=== PATIENT | male | born 1970 | race Caucasian/White ===

== ENCOUNTER 2016-12-15 13:26 | Emergency (ER) | payer OTHER ==
[2016-12-15] MEDS ORDERED: ASPIRIN 325 MG TAB PO ONE (13:36)
[2016-12-15] MEDS ORDERED: ASPIRIN 81 MG CHEWABLE TAB ONE (13:38)
--- NOTE | 2016-12-15 13:40 | CPEKG ---
Heart Rate: 66 RR Interval: 909 P-R Interval: 164 QRSD Interval: 98 QT Interval: 424 QTC Interval: 445 P [place]: 63 QRS [place]: 79 T Wave [place]: 64 EKG Severity - NORMAL ECG - EKG Impression: SINUS RHYTHM Electronically Signed By: Candido Gatica 15-Dec-2016 17:37:35
[2016-12-15 13:45] LABS: % IMMATURE GRANULYOCYTES 0.3 % (0.0-1.1); ABSOLUTE IMMATURE GRANULOCYTES 0.02 10^3/uL (0.00-0.10); ADD DIFF? NO; ADD MORPH? NO; ADD SCAN? NO; ATYPICAL LYMPHOCYTE FLAG 0 (0-99); FRAGMENT RBC FLAG 0 (0-99); HEMATOCRIT 47.6 % (40.0-51.0); HEMOGLOBIN 16.8 g/dL (13.7-17.5); LEFT SHIFT FLG 0 (0-99); LIPEMIA HEMOLYSIS FLAG 90 (0-99); MEAN CELL HEMOGLOBIN 30.7 pg (27.9-34.1); MEAN CELL HEMOGLOBIN CONCENTR. 35.3 g/dL (32.4-36.7); MEAN CELL VOLUME 86.9 fL (81.5-99.8); MEAN PLATELET VOLUME 10.4 fL (8.7-11.7); PLATELET CLUMPS FLAG 0 (0-99); PLATELET COUNT 202 10^3/uL (150-400); RED BLOOD CELL COUNT 5.48 10^6/uL (4.40-6.38); RED CELL DISTRIBUTION WIDTH 12.2 % (11.5-15.2)
[2016-12-15 13:58] LABS: ANION GAP 12 mEq/L (8-16); CALCIUM 9.1 mg/dL (8.5-10.4); CARBON DIOXIDE 22 mEq/l (22-31); CHLORIDE 106 mEq/L (97-110); CREATININE 1.2 mg/dL (0.7-1.3); GLOMERULAR FILTRATION RATE > 60; GLUCOSE 101 mg/dL (70-100); SODIUM 140 mEq/L (134-144)
--- NOTE | 2016-12-15 13:59 | EDPHY ---
H & P Stated Complaint: chest tightness since sunday - Personal History Current Tetanus/Diphtheria Vaccine: Unsure - Medical/Surgical History Hx Asthma: No Hx Chronic Respiratory Disease: No Hx Diabetes: No Hx Cardiac Disease: No Hx Renal Disease: No Hx Cirrhosis: No Hx Alcoholism: No Hx HIV/AIDS: No Hx Splenectomy or Spleen Trauma: No Other PMH: denies - Family History Significant Family History: No pertinent family hx - Social History Smoking Status: Never smoked Time Seen by Provider: 12/15/16 13:37 HPI/ROS: Chief complaint: Chest tightness History of present illness: This is an otherwise healthy 46-year-old male who presents to the emergency department for evaluation of chest tightness. Patient reports the onset of symptoms approximately 3 days ago. He states symptoms have been intermittent in nature. When pain occurs it lasts for 30 minutes to an hour. It does not radiate. He denies any precipitating factors including exertion. He denies alleviating or aggravating factors. He has had on occasion some epigastric discomfort. He denies other associated signs or symptoms including no fevers, no cold symptoms, no cough for shortness of breath , no pain or swelling in the legs. He has never had similar. Review of systems: A 10 point review of systems was obtained and other than described above was negative (Pietro Davis) - Physical Exam Exam: General Appearance: Alert, nontoxic. Eyes: Pupils equal and round no pallor or injection. ENT, Mouth: Mucous membranes moist. Respiratory: There are no retractions, lungs are clear to auscultation. Cardiovascular: Regular rate and rhythm. Gastrointestinal: Abdomen is soft and nontender, no masses, bowel sounds normal. Neurological: Alert and oriented x4. Strength and sensation intact and symmetrical. Skin: Warm and dry, no rashes. Musculoskeletal: Neck is supple nontender. Extremities are symmetrical, full range of motion. Psychiatric: Patient is oriented X 3, there is no agitation. (Pietro Davis) Constitutional: Initial Vital Signs Temperature (C) 36.5 C 12/15/16 13:29 Heart Rate 72 12/15/16 13:29 Respiratory Rate 18 12/15/16 13:29 Blood Pressure 129/68 H 12/15/16 13:29 O2 Sat (%) 96 12/15/16 13:29 O2 Delivery Mode Room Air Allergies/Adverse Reactions: No Known Allergies Allergy (Unverified 12/15/16 13:29) Home Medications: Medication Instructions Recorded NK [No Known Home Meds] 12/15/16 Medical Decision Making - Diagnostics EKG Interpretation: EKG interpreted by me shows normal sinus rhythm with normal intervals and axis. QRS is normal ST-T segments are normal. Rate is 66. This appears to be a normal EKG (Candido Gatica) ED Course/Re-evaluation: Patient seen in conjunction with my secondary supervising physician Dr. Candido Gatica. Patient presents to the emergency department for chest tightness and occasional epigastric pain. On presentation he is nontoxic. Afebrile and vital signs are stable. Physical exam unremarkable. Blood studies and EKG unremarkable. Chest x-ray had been ordered, but patient declined. He would like to be discharged from the hospital to follow up on an outpatient basis. Again I have offered a chest x-ray but he has declined. Further I have offered admission to the hospital for further evaluation of his chest pain again he declines. He is competent to make these decisions. At discharge he is symptom- free. He is referred to Cardiology for further evaluation and care. Strict return precautions are given. Patient voiced understanding and agreement with plan. (Pietro Davis) I also saw the patient in the emergency department. I reviewed the history of several days of anterior chest tightness. He denies precipitating factors including exertion, breathing, movement. Not short of breath. He has not had similar symptoms before. He has no significant risk factors including family history. My exam of this patient is normal. His vital signs are normal Laboratory evaluation is normal. EKG is normal. Patient is offered admission by me. On re-evaluation he stable. The patient declines admission and is comfortable with being treated as an outpatient. The patient and I discussed criteria for return as well as importance of follow-up and further evaluation. He expresses understanding and agreement (Candido Gatica) Differential Diagnosis: My differential diagnosis would include a glucose acute coronary syndrome, pulmonary embolus, aortic dissection, muscular etiology (Candido Gatica) - Data Points Laboratory Results: Laboratory Results 12/15/16 13:40 12/15/16 13:40 12/15/16 12/15/16 12/15/16 13:40 13:40 13:40 WBC RBC Hgb Hct MCV MCH MCHC RDW Plt Count MPV Neut % (Auto) Lymph % (Auto) [place] % (Auto) Eos % (Auto) Baso % (Auto) Nucleat RBC Rel Count Absolute Neuts (auto) Absolute Lymphs (auto) Absolute Monos (auto) Absolute Eos (auto) Absolute Basos (auto) Absolute Nucleated RBC Immature Gran % Immature Gran # D-Dimer < 0.27 ug/mLFEU ug/mLFEU (0.00-0.50) Sodium 140 mEq/L mEq/L (134-144) Potassium 4.0 mEq/L mEq/L (3.5-5.2) Chloride 106 mEq/L mEq/L (97-110) Carbon Dioxide 22 mEq/l mEq/l (22-31) Anion Gap 12 mEq/L mEq/L (8-16) BUN 29 mg/dL H mg/dL (7-23) Creatinine 1.2 mg/dL mg/dL (0.7-1.3) Estimated GFR > 60 Glucose 101 mg/dL H mg/dL (70-100) Calcium 9.1 mg/dL mg/dL (8.5-10.4) Total Bilirubin 1.1 mg/dL mg/dL (0.1-1.4) Conjugated Bilirubin 0.3 mg/dL mg/dL (0.0-0.5) Unconjugated Bilirubin 0.8 mg/dL mg/dL (0.0-1.1) AST 31 IU/L IU/L (17-59) ALT 29 IU/L IU/L (21-72) Alkaline Phosphatase 60 IU/L IU/L (38-126) Troponin I < 0.012 ng/mL ng/mL (0-0.034) Total Protein 7.1 g/dL g/dL (6.3-8.2) Albumin 4.7 g/dL g/dL (3.5-5.0) Lipase 258.0 IU/L IU/L (23-300) 12/15/16 13:40 WBC 6.72 10^3/uL 10^3/uL (3.80-9.50) RBC 5.48 10^6/uL 10^6/uL (4.40-6.38) Hgb 16.8 g/dL g/dL (13.7-17.5) Hct 47.6 % % (40.0-51.0) MCV 86.9 fL fL (81.5-99.8) MCH 30.7 pg pg (27.9-34.1) MCHC 35.3 g/dL g/dL (32.4-36.7) RDW 12.2 % % (11.5-15.2) Plt Count 202 10^3/uL 10^3/uL (150-400) MPV 10.4 fL fL (8.7-11.7) Neut % (Auto) 62.8 % % (39.3-74.2) Lymph % (Auto) 26.5 % % (15.0-45.0) [place] % (Auto) 5.8 % % (4.5-13.0) Eos % (Auto) 3.7 % % (0.6-7.6) Baso % (Auto) 0.9 % % (0.3-1.7) Nucleat RBC Rel Count 0.0 % % (0.0-0.2) Absolute Neuts (auto) 4.22 10^3/uL 10^3/uL (1.70-6.50) Absolute Lymphs (auto) 1.78 10^3/uL 10^3/uL (1.00-3.00) Absolute Monos (auto) 0.39 10^3/uL 10^3/uL (0.30-0.80) Absolute Eos (auto) 0.25 10^3/uL 10^3/uL (0.03-0.40) Absolute Basos (auto) 0.06 10^3/uL 10^3/uL (0.02-0.10) Absolute Nucleated RBC 0.00 10^3/uL 10^3/uL (0-0.01) Immature Gran % 0.3 % % (0.0-1.1) Immature Gran # 0.02 10^3/uL 10^3/uL (0.00-0.10) D-Dimer Sodium Potassium Chloride Carbon Dioxide Anion Gap BUN Creatinine Estimated GFR Glucose Calcium Total Bilirubin Conjugated Bilirubin Unconjugated Bilirubin AST ALT Alkaline Phosphatase Troponin I Total Protein Albumin Lipase Medications Given: Discontinued Medications Aspirin (Aspirin) 324 mg PO EDNOW ONE Stop: 12/15/16 13:37 Last Admin: 12/15/16 13:47 Dose: 324 mg Departure - Departure Disposition: Home, Routine, Self-Care Clinical Impression: Chest pain Qualifiers: Chest pain type: unspecified Qualified Code(s): R07.9 - Chest pain, unspecified Condition: Good Instructions: Chest Pain (ED) Additional Instructions: Follow-up with Cardiology for continued evaluation and care You were offered a chest x-ray in the emergency department today, you declined You were offered admission to the hospital today, you declined If symptoms worsen or new symptoms develop return to the emergency department for recheck Referrals: Marcela Coffman MD [Primary Care Provider] - As per Instructions Deng Fernandez MD [Medical Doctor] - As per Instructions
[2016-12-15 14:09] LABS: TROPONIN I < 0.012 ng/mL (0-0.034)
[2016-12-15 14:20] VITALS: RESP 18; O2SAT 96
[2016-12-15 14:24] LABS: ALBUMIN 4.7 g/dL (3.5-5.0); BILIRUBIN,TOTAL 1.1 mg/dL (0.1-1.4); BILIRUBIN-CONJUGATED 0.3 mg/dL (0.0-0.5); BILIRUBIN-UNCONJUGATED 0.8 mg/dL (0.0-1.1); TOTAL PROTEIN 7.1 g/dL (6.3-8.2)
[2016-12-15 15:05] VITALS: BP 111/76; PULSE 64; TEMP 98.8
== END 2016-12-15 15:04 | disposition home or self-care (01) ==
DX: R07.9 Chest pain, unspecified (principal)